=== PATIENT | female | born 1990 | race African-American/Black ===

== ENCOUNTER → 2017-03-10 | Outpatient (REF) | payer OTHER ==
[~2017-03-10] MED LIST: ACET50TA PO; DIBU1OIN TOP; DOCU10CA PO; IBUP80TA PO; PREN1TAB11 PO; PRENTAB8 PO; VITAPRTA PO
== END ==
LOC: M LAB REF 16:25
PROVIDERS: ATTEND Nurse Practitioner Adult Health
DX: R09.3 Abnormal sputum (principal)

== ENCOUNTER → 2017-04-27 | Outpatient (CLI) | payer OTHER ==
--- NOTE | 2017-04-27 15:59 | REP ---
Focused bilateral breast sonography: History: Bilateral milky discharge over the course of the last year. No nursing since approximately 1 year ago. Sonography performed at my request. Findings: Subareolar sonography is performed bilaterally. A few slightly prominent retroareolar breast ducts are identified bilaterally. No mass, cyst, or acoustic shadowing is seen. No suspicious sonographic features. Impression: Mildly prominent retroareolar breast ducts bilaterally. No suspicious sonographic finding. Clinical follow-up is advised. BIRADS category II benign sonographic findings. Signed by Luis Enrique Song MD 04/27/2017 04:29 P
== END ==
LOC: M RAD 15:06
PROVIDERS: ATTEND Nurse Practitioner Adult Health
DX: N64.52 Nipple discharge (principal)

== ENCOUNTER → 2017-05-24 | Outpatient (CLI) | payer OTHER ==
[~2017-05-24] MED LIST changes: -ACET50TA PO; -DIBU1OIN TOP; -DOCU10CA PO; -IBUP80TA PO; -PREN1TAB11 PO; -PRENTAB8 PO; +PROHANCE 279.3MG/ML 5ML VIAL (A9576) As Ordered; -VITAPRTA PO
[2017-05-24 13:33] LABS: TOTAL T3 139.2 NG/DL (60.0-181.0)
[2017-05-24 13:37] LABS: FREE T4 1.36 NG/DL (0.76-1.46); THYROID STIMULATING HORMONE 0.329 uIU/ML (0.358-3.740)
== END ==
LOC: M RAD 12:44
DX: N64.3 Galactorrhea not associated with childbirth (principal)
CPT/HCPCS: A9576

== ENCOUNTER 2017-08-19 13:10 | Emergency (ER) | payer OTHER ==
[2017-08-19] MEDS: NS 1,000 ML IV ×2 (13:57)
[2017-08-19] MEDS: METOCLOPRAMIDE INJ 10MG/2ML VIAL (J2765) IV ×2 (13:58)
[2017-08-19 14:33] LABS: BASO # 0.1 10^3/uL (0.0-0.2); BASO % 1.4 % (0.0-1.0); EOS # 0.2 10^3/uL (0.0-0.50); EOS % 2.5 % (0.0-3.0); HEMATOCRIT 34.2 % (36.0-47.0); HEMOGLOBIN 11.1 g/dl (12.0-15.5); IMMATURE GRANULOCYTE % 0.2 % (0-3.0); LYMPH # 1.7 10^3/uL (1.5-6.5); LYMPH % 26.6 % (24.0-44.0); MEAN CORPUSCULAR HEMOGLOBIN 20.9 pg (27.0-33.0); MEAN CORPUSCULAR HGB CONC 32.5 g/dl (32.0-36.5); MEAN CORPUSCULAR VOLUME 64.3 fl (80.0-96.0); MONO # 0.6 10^3/uL (0.0-0.8); MONO % 10.1 % (0.0-5.0); NEUTROPHILS # 3.7 10^3/uL (1.8-7.7); NEUTROPHILS % 59.2 % (36.0-66.0); PLATELET COUNT, AUTOMATED 298 10^3/uL (150-450); RED BLOOD COUNT 5.32 10^6/uL (4.00-5.40); RED CELL DISTRIBUTION WIDTH 14.3 % (11.5-14.5); WHITE BLOOD COUNT 6.3 10^3/uL (4.0-10.0)
[2017-08-19 14:43] LABS: INR 1.11; PROTHROMBIN TIME 14.5 SECONDS (12.4-14.5)
[2017-08-19 14:44] LABS: PARTIAL THROMBOPLASTIN TIME 41.3 SECONDS (26.8-37.9)
[2017-08-19 14:49] LABS: CONTROL LINE HCG INT CTR LINE PRESENT; HCG, SERUM QUALITATIVE NEGATIVE (NEGATIVE)
[2017-08-19 14:59] LABS: ANION GAP 3 MEQ/L (8-16); BLOOD UREA NITROGEN 9 MG/DL (7-18); CALCIUM LEVEL 8.7 MG/DL (8.5-10.1); CARBON DIOXIDE LEVEL 30 MEQ/L (21-32); CHLORIDE LEVEL 110 MEQ/L (98-107); CPK CREATINE PHOSPHOKINASE 92 U/L (26-192); CREATININE FOR GFR 0.57 MG/DL (0.55-1.30); FREE T4 1.03 NG/DL (0.76-1.46); GLOMERULAR FILTRATION RATE > 60.0 (>60); GLUCOSE, FASTING 87 MG/DL (70-100); MAGNESIUM LEVEL 2.4 MG/DL (1.8-2.4); POTASSIUM SERUM 4.3 MEQ/L (3.5-5.1); SODIUM LEVEL 143 MEQ/L (136-145); TROPONIN I < 0.02 NG/ML (< 0.10)
[2017-08-19 15:04] LABS: CK-MB VALUE MASS < 1.0 NG/ML (<3.6); MB/CK RELATIVE INDEX 1.08 (< OR =4); THYROID STIMULATING HORMONE 0.364 uIU/ML (0.358-3.740)
[2017-08-19] MEDS: KETOROLAC 30 MG/ML VIAL (J1885) IV ×2 (15:38)
== END 2017-08-19 16:05 | disposition home or self-care (01) ==
LOC: M ED 13:10
DX: R55 Syncope and collapse (principal); G43.909 Migraine, unspecified, not intractable, without status migrainosus; Z79.899 Other long term (current) drug therapy
CPT/HCPCS: J1885

== ENCOUNTER → 2017-08-30 | Outpatient (CLI) | payer OTHER | LOC: M SLEEP 19:47 | DX: G47.10 Hypersomnia, unspecified (principal); G47.419 Narcolepsy without cataplexy | CPT/HCPCS: 95810 ==

== ENCOUNTER 2017-10-30 09:49 | Emergency (ER) | payer OTHER ==
[2017-10-30] MEDS: KETOROLAC TROMETHAMINE 10 MG TAB PO (10:20)
== END 2017-10-30 10:52 | disposition home or self-care (01) ==
LOC: M ED 09:49
DX: S92.425A Nondisplaced fracture of distal phalanx of left great toe, initial encounter for closed fracture (principal); W22.09XA Striking against other stationary object, initial encounter; Y92.092 Bedroom in other non-institutional residence as the place of occurrence of the external cause; F32.9 Major depressive disorder, single episode, unspecified
CPT/HCPCS: 73630

== ENCOUNTER 2017-10-30 19:07 | Emergency (ER) | payer OTHER | END 2017-10-30 21:32 | disposition home or self-care (01) | LOC: M ED 19:07 | DX: Z32.01 Encounter for pregnancy test, result positive (principal); R51 Headache | CPT/HCPCS: 81025 ==

== ENCOUNTER → 2017-12-02 | Outpatient (CLI) | payer OTHER ==
[2017-12-02 13:00] LABS: PROLACTIN 29.6 NG/ML
[2017-12-02 13:05] LABS: FREE T4 3.35 NG/DL (0.76-1.46); THYROID STIMULATING HORMONE < 0.005 uIU/ML (0.358-3.740)
[2017-12-05 00:06] LABS: SOMATOMEDIN-C INSULIN GROWTH 209 ng/mL (93-342)
== END ==
LOC: M LAB 11:48
DX: R94.6 Abnormal results of thyroid function studies (principal)
CPT/HCPCS: 84146

== ENCOUNTER → 2017-12-05 | Outpatient (REF) | payer OTHER ==
[2017-12-08 00:13] LABS: THYROID STIMULATING IMMUNOGLOB <0.10 IU/L (0.00-0.55)
[2017-12-08 00:13] LABS: TSH RECEPTOR ASSAY <0.50 IU/L (0.00-1.75)
== END ==
LOC: M LABDRAW1 17:18
DX: E05.00 Thyrotoxicosis with diffuse goiter without thyrotoxic crisis or storm (principal)
CPT/HCPCS: 84445

== ENCOUNTER 2017-12-18 15:33 | Emergency (ER) | payer OTHER | END 2017-12-18 18:02 | disposition home or self-care (01) | LOC: M ED 15:33 | DX: T76.11XA Adult physical abuse, suspected, initial encounter (principal); Y92.099 Unspecified place in other non-institutional residence as the place of occurrence of the external cause; Y93.89 Activity, other specified; Z3A.11 11 weeks gestation of pregnancy; Z79.899 Other long term (current) drug therapy | CPT/HCPCS: 76801 ==

== ENCOUNTER 2017-12-26 17:07 | Emergency (ER) | payer OTHER ==
[2017-12-26 18:43] LABS: KETONE, URINE AUTO RFX TRACE mg/dL (NEGATIVE); LEUKOCYTE ESTERASE UR AUTO RFX NEGATIVE (NEGATIVE); MUCUS, URINE RFX LARGE (NEGATIVE); NITRITE, URINE AUTO RFX NEGATIVE (NEGATIVE); RBC, URINE AUTO RFX 7 /HPF (0-3); SPECIFIC GRAVITY UR AUTO RFX 1.034 (1.002-1.035); SQUAM EPITHELIAL CELL UR AURFX 3 /HPF (0-6); WBC, URINE AUTO RFX 2 /HPF (0-3)
[2017-12-26] MEDS: NS 1,000 ML IV (18:59)
[2017-12-26] MEDS: METOCLOPRAMIDE INJ 10MG/2ML VIAL (J2765) IV (18:59)
[2017-12-26 19:07] LABS: BASO % 0.5 % (0.0-1.0); EOS # 0.1 10^3/uL (0.0-0.50); EOS % 1.4 % (0.0-3.0); HEMATOCRIT 31.6 % (36.0-47.0); HEMOGLOBIN 10.5 g/dl (12.0-15.5); IMMATURE GRANULOCYTE % 0.4 % (0-3.0); LYMPH # 1.6 10^3/uL (1.5-6.5); LYMPH % 20.2 % (24.0-44.0); MEAN CORPUSCULAR HEMOGLOBIN 20.8 pg (27.0-33.0); MEAN CORPUSCULAR HGB CONC 33.2 g/dl (32.0-36.5); MEAN CORPUSCULAR VOLUME 62.7 fl (80.0-96.0); MONO % 13.1 % (0.0-5.0); NEUTROPHILS % 64.4 % (36.0-66.0); PLATELET COUNT, AUTOMATED 295 10^3/uL (150-450); RED BLOOD COUNT 5.04 10^6/uL (4.00-5.40); RED CELL DISTRIBUTION WIDTH 13.7 % (11.5-14.5); WHITE BLOOD COUNT 7.7 10^3/uL (4.0-10.0)
[2017-12-26 19:29] LABS: ALBUMIN 3.2 GM/DL (3.2-5.2); ALKALINE PHOSPHATASE 40 U/L (45-117); ALT/SGPT 13 U/L (12-78); ANION GAP 9 MEQ/L (8-16); AST/SGOT 18 U/L (7-37); BILIRUBIN,DIRECT < 0.1 MG/DL (0.0-0.2); BILIRUBIN,TOTAL 0.3 MG/DL (0.2-1.0); BLOOD UREA NITROGEN 8 MG/DL (7-18); CARBON DIOXIDE LEVEL 23 MEQ/L (21-32); CHLORIDE LEVEL 108 MEQ/L (98-107); CREATININE FOR GFR 0.35 MG/DL (0.55-1.30); GLOMERULAR FILTRATION RATE > 60.0 (>60); GLUCOSE, FASTING 71 MG/DL (70-100); SODIUM LEVEL 140 MEQ/L (136-145); TOTAL PROTEIN 7.2 GM/DL (6.4-8.2)
[2017-12-26 19:32] LABS: POTASSIUM SERUM 5.5 MEQ/L (3.5-5.1)
== END 2017-12-26 20:58 | disposition home or self-care (01) ==
LOC: M ED 17:07
DX: O21.0 Mild hyperemesis gravidarum (principal); O99.281 Endocrine, nutritional and metabolic diseases complicating pregnancy, first trimester; Z3A.13 13 weeks gestation of pregnancy; O99.341 Other mental disorders complicating pregnancy, first trimester; O99.89 Other specified diseases and conditions complicating pregnancy, childbirth and the puerperium; G47.9 Sleep disorder, unspecified; R51 Headache
CPT/HCPCS: J2765

== ENCOUNTER → 2017-12-26 | Outpatient (CLI) | payer OTHER ==
[2017-12-26 19:10] LABS: FREE T4 3.32 NG/DL (0.76-1.46); THYROID STIMULATING HORMONE < 0.005 uIU/ML (0.358-3.740)
[2017-12-26 20:09] LABS: BASO % 0.5 % (0.0-1.0); EOS # 0.1 10^3/uL (0.0-0.50); EOS % 1.7 % (0.0-3.0); HEMATOCRIT 30.3 % (36.0-47.0); HEMOGLOBIN 9.9 g/dl (12.0-15.5); IMMATURE GRANULOCYTE % 0.4 % (0-3.0); LYMPH # 1.4 10^3/uL (1.5-6.5); LYMPH % 19.1 % (24.0-44.0); MEAN CORPUSCULAR HEMOGLOBIN 20.7 pg (27.0-33.0); MEAN CORPUSCULAR HGB CONC 32.7 g/dl (32.0-36.5); MEAN CORPUSCULAR VOLUME 63.4 fl (80.0-96.0); MONO # 0.9 10^3/uL (0.0-0.8); MONO % 12.5 % (0.0-5.0); NEUTROPHILS # 4.9 10^3/uL (1.8-7.7); NEUTROPHILS % 65.8 % (36.0-66.0); PLATELET COUNT, AUTOMATED 305 10^3/uL (150-450); RED BLOOD COUNT 4.78 10^6/uL (4.00-5.40); RED CELL DISTRIBUTION WIDTH 13.4 % (11.5-14.5); WHITE BLOOD COUNT 7.5 10^3/uL (4.0-10.0)
[2017-12-26 23:07] LABS: SICKLE CELL SCREEN NEGATIVE (NEGATIVE)
[2017-12-26 23:43] LABS: CHLAMYDIA DNA AMPLIFICATION NEGATIVE (NEGATIVE); GC DNA AMPLIFICATION NEGATIVE (NEGATIVE)
[2017-12-28 11:26] LABS: RUBELLA IgG QUALITATIVE IMMUNE (IMMUNE)
[2017-12-28 11:32] LABS: HBsAg Prenatal NEGATIVE (NEGATIVE)
[2017-12-28 11:56] LABS: HEPATITIS C VIRUS ABY INDEX 0.1 INDEX (<0.8)
[2017-12-28 11:56] LABS: HIV 1&2 SCREEN CENTAUR NEGATIVE (NEGATIVE)
== END ==
LOC: M LAB 16:34
DX: Z34.81 Encounter for supervision of other normal pregnancy, first trimester (principal); Z3A.11 11 weeks gestation of pregnancy; Z36.89 Encounter for other specified antenatal screening
CPT/HCPCS: 84443

== ENCOUNTER → 2017-12-26 | Outpatient (CLI) | payer OTHER ==
[2017-12-26 18:58] LABS: TOTAL T3 366.9 NG/DL (60.0-181.0)
== END ==
LOC: M LAB 16:36
DX: O99.281 Endocrine, nutritional and metabolic diseases complicating pregnancy, first trimester (principal)
CPT/HCPCS: 84480